=== PATIENT | male | born 1965 | race Asian ===

== ENCOUNTER 2023-01-15 05:46 | Day surgery (SDC) | payer OTHER ==
[2023-01-11 11:54] VITALS: BMI 26.3
[2023-01-15 08:39] VITALS: TEMP 97.3
[2023-01-15 09:15] VITALS: RESP 16
[2023-01-15 09:40] VITALS: BP 116/75; PULSE 58
== END 2023-01-15 09:30 | disposition home or self-care (01) ==
LOC: JASU-ENDO 05:46
PROVIDERS: ATTEND Internal Medicine Gastroenterology
PROC: 0DBL8ZX Excision of Transverse Colon, Via Natural or Artificial Opening Endoscopic, Diagnostic (ICD-10-PCS; principal; 2023-01-15 08:00)
DX: Z12.11 Encounter for screening for malignant neoplasm of colon (principal); D12.3 Benign neoplasm of transverse colon; I10 Essential (primary) hypertension
CPT/HCPCS: 88305-TC